=== PATIENT | female | born 1995 | race Caucasian/White ===

== ENCOUNTER 2016-08-18 01:01 | Emergency (ER) | payer OTHER ==
[~2016-08-18] VITALS: Ht 162.5 cm; Wt 91.2 kg
[~2016-08-18 01:01] MED LIST: CIPROFLOXACIN500 MG PO; DEPO PROVER150 MG/M1 IM; MEDROL DOSEPAK4 MG PO; VICODIN 5/500 505 MG PO
[2016-08-18] MEDS ORDERED: Motrin,Rufen800 MG PO (01:21)
== END 2016-08-18 01:47 | disposition home or self-care (01) ==
LOC: ED 01:01
DX: S80.02XA Contusion of left knee, initial encounter (principal); S80.01XA Contusion of right knee, initial encounter; F17.200 Nicotine dependence, unspecified, uncomplicated; V40.6XXA Car passenger injured in collision with pedestrian or animal in traffic accident, initial encounter; Y93.89 Activity, other specified; Y92.89 Other specified places as the place of occurrence of the external cause; Y99.8 Other external cause status

== ENCOUNTER 2021-08-18 13:08 | Emergency (ER) | payer OTHER ==
[~2021-08-18] VITALS: Ht 160 cm; Wt 86.2 kg
[~2021-08-18 13:08] MED LIST changes: +Motrin,Rufen800 MG PO
[2021-08-18] MEDS ORDERED: Motrin,Rufen800 MG PO (13:24)
[2021-08-18] MEDS ORDERED: AMOXICILLIN500 M2 PO (13:24)
== END 2021-08-18 13:34 | disposition home or self-care (01) ==
LOC: ED 13:08
DX: K08.89 Other specified disorders of teeth and supporting structures (principal)